=== PATIENT | female | born 1965 | race African-American/Black ===

== ENCOUNTER 2018-09-02 22:41 | Inpatient (IN) | payer MEDICAID, OTHER ==
[~2018-09-02] VITALS: Ht 180.3 cm; Wt 94.9 kg
[2018-09-03] MEDS ORDERED: FUROSEMIDE 40MG/4ML VIAL IV ONE
[2018-09-03] MEDS ORDERED: NITROGLYCERIN OINT 1GM/INCH UDPKT TD ONE
[2018-09-03] MEDS ORDERED: ASPIRIN 81MG TABLET PO ONE
[2018-09-03 00:10] LABS: BASOPHILS % 0.5 % (0.0-2.0); EOSINOPHILS % 1.8 % (0.0-5.0); HEMATOCRIT. 32.9 % (36.0-48.0); HEMOGLOBIN. 10.6 g/dL (12.0-16.0); LYMPHOCYTES % 21.8 % (20.0-50.0); MEAN CORPUSCULAR HEMOGLOBIN 25.7 pg (28.0-32.0); MEAN CORPUSCULAR VOLUME 79.9 fL (81.0-99.0); MEAN PLATELET VOLUME 7.2 fl (7.4-10.4); MONOCYTES % 6.4 % (2.0-8.0); NEUTROPHILS % 69.5 % (40.0-76.0); PLATELET 353 x1000/uL (130-400); RED BLOOD CELL COUNT 4.11 mill/uL (4.2-5.4); RED CELL DISTRIBUTION WIDTH 16.8 % (11.6-14.6)
[2018-09-03 00:18] LABS: CHLORIDE 106 mEq/L (98-107)
[2018-09-03 00:20] LABS: HCG SCREEN NEGATIVE
[2018-09-03 00:37] LABS: INR 1.2; PARTIAL THROMBOPLASTIN TIME 26.6 sec (23.4-31.0); PROTHROMBIN TIME 12.2 sec (9.6-11.0)
[2018-09-03] MEDS ORDERED: ACETAMINOPHEN 325MG TABLET PO PRN (02:45)
[2018-09-03] MEDS ORDERED: ONDANSETRON HCL 4MG/2ML INJ IV PRN (02:45)
[2018-09-03] MEDS ORDERED: DEXTROSE 50% WATER 50ML SYRINGE IV PRN (02:45)
[2018-09-03] MEDS ORDERED: CLONIDINE 0.1MG TABLET PO PRN (02:45)
[2018-09-03] MEDS ORDERED: DIPHENHYDRAMINE 50MG/ML VIAL IV PRN (02:45)
[2018-09-03] MEDS ORDERED: MAGNESIUM/ALUMINUM HYDROXIDE/SIMETHICONE 30ML UDC PO PRN (02:45)
[2018-09-03] MEDS ORDERED: FURO-152 PO (05:12)
[2018-09-03 05:22] VITALS: BP 144/95
[2018-09-03] MEDS: SODIUM CHLORIDE 0.9% INJ 3ML FLUSH IVF SCH ×3 (06:06→21:17)
[2018-09-03] MEDS: NITROGLYCERIN OINT 1GM/INCH UDPKT TD SCH ×2 (06:06→15:59)
[2018-09-03] MEDS: BLOOD SUGAR DIAGNOSTIC STRIP TEST SCH ×4 (06:56→22:00)
[2018-09-03 08:00] VITALS: BP 136/87
[2018-09-03] MEDS: POTASSIUM CHLORIDE 20MEQ TABLET SR PO SCH (08:29)
[2018-09-03] MEDS: METOLAZONE 10MG TABLET PO SCH (08:30)
[2018-09-03] MEDS: INSULIN LISPRO 100 UNITS/ML SUBCUT SCH ×4 (08:31→22:17)
[2018-09-03] MEDS: FUROSEMIDE 40MG/4ML VIAL IVP SCH ×2 (08:31→21:16)
[2018-09-03] MEDS ORDERED: LISINOPRIL 10MG TABLET PO SCH (09:00)
[2018-09-03 10:02] LABS: *AMPHETAMINES SCREEN URINE NEGATIVE (NEGATIVE); *BARBITURATES SCREEN URINE NEGATIVE (NEGATIVE); *COCAINE SCREEN URINE NEGATIVE (NEGATIVE); METHADONE URINE SCREEN NEGATIVE (NEGATIVE); OPIATES URINE SCREEN NEGATIVE (NEGATIVE)
[2018-09-03 10:03] LABS: *BENZODIAZEPINES SCREEN URINE NEGATIVE (NEGATIVE); CANNABINOID URINE SCREEN NEGATIVE (NEGATIVE); PHENCYCLIDINE URINE SCREEN NEGATIVE (NEGATIVE)
[2018-09-03 12:00] VITALS: BP 137/80
[2018-09-03 12:25] LABS: LDL CHOLESTEROL 66 mg/dL (5-100)
[2018-09-03 12:26] LABS: HDL CHOLESTEROL 35 mg/dL (40-59)
[2018-09-03 12:28] LABS: T4 FREE 1.35 ng/dL (0.76-1.46)
[2018-09-03 16:09] VITALS: BP 136/86
[2018-09-03 16:30] LABS: CREATINE KINASE 336 IU/L (26-192)
[2018-09-03 16:31] LABS: CREATINE KINASE MB FRACTION 4.8 ng/mL (0.5-3.6)
[2018-09-03] MEDS ORDERED: SPIRONOLACTONE 25MG TABLET PO SCH (17:30)
[2018-09-03] MEDS ORDERED: METFORMIN HCL 500MG TABLET PO SCH (18:10)
[2018-09-03 20:00] VITALS: BP 130/79
[2018-09-03] MEDS ORDERED: CARVEDILOL 25MG TABLET PO SCH (21:00)
[2018-09-03] MEDS ORDERED: CARVEDILOL 12.5MG TABLET PO SCH (21:02)
[2018-09-03] MEDS ORDERED: ISOSORBIDE DINITRATE 30MG TABLET PO SCH (22:00)
[2018-09-03] MEDS ORDERED: HYDRALAZINE HCL 50MG TABLET PO SCH (22:00)
[2018-09-04 00:25] VITALS: BP 78/36
[2018-09-04 01:00] VITALS: BP 89/45
[2018-09-04] MEDS ORDERED: GUAIFENESIN 200MG/10ML SUGAR FREE UDC PO PRN (01:00)
[2018-09-04 01:14] LABS: CREATINE KINASE MB FRACTION 3.3 ng/mL (0.5-3.6)
[2018-09-04 02:30] VITALS: BP 93/60
[2018-09-04 04:00] VITALS: BP 98/60
[2018-09-04 05:19] LABS: BASOPHILS % 0.6 % (0.0-2.0); EOSINOPHILS % 2.1 % (0.0-5.0); HEMATOCRIT. 30.9 % (36.0-48.0); HEMOGLOBIN. 10.1 g/dL (12.0-16.0); LYMPHOCYTES % 18.5 % (20.0-50.0); MEAN CORPUSCULAR HEMOGLOBIN 25.8 pg (28.0-32.0); MEAN CORPUSCULAR VOLUME 78.6 fL (81.0-99.0); MEAN PLATELET VOLUME 7.1 fl (7.4-10.4); MONOCYTES % 6.7 % (2.0-8.0); NEUTROPHILS % 72.1 % (40.0-76.0); PLATELET 381 x1000/uL (130-400); RED BLOOD CELL COUNT 3.93 mill/uL (4.2-5.4); RED CELL DISTRIBUTION WIDTH 17.2 % (11.6-14.6)
[2018-09-04 05:46] LABS: CHLORIDE 99 mEq/L (98-107)
[2018-09-04 05:51] LABS: PHOSPHORUS 4.4 mg/dL (2.5-4.9)
[2018-09-04 05:54] LABS: CREATINE KINASE 264 IU/L (26-192)
[2018-09-04 05:56] LABS: CREATINE KINASE MB FRACTION 2.6 ng/mL (0.5-3.6)
[2018-09-04] MEDS: SODIUM CHLORIDE 0.9% INJ 3ML FLUSH IVF SCH (06:02)
[2018-09-04] MEDS: BLOOD SUGAR DIAGNOSTIC STRIP TEST SCH (06:03)
[2018-09-04 08:00] VITALS: BP 116/91
[2018-09-04] MEDS: INSULIN LISPRO 100 UNITS/ML SUBCUT SCH (08:10)
[2018-09-04] MEDS ORDERED: CARVEDILOL 6.25 MG TABLET PO SCH (09:00)
[2018-09-04] MEDS ORDERED: ISOSORBIDE DINITRATE 20MG TABLET PO SCH (09:00)
[2018-09-04] MEDS ORDERED: HYDRALAZINE HCL 25MG TABLET PO SCH (09:00)
[2018-09-04] MEDS ORDERED: MAGNESIUM 1 G PREMIX 100 ML IV NR (09:00)
[2018-09-04] MEDS: FUROSEMIDE 40MG/4ML VIAL IVP SCH (09:00)
[2018-09-04] MEDS ORDERED: CARVEDILOL 12.5MG TABLET PO SCH (09:00)
[2018-09-04] MEDS: METOLAZONE 10MG TABLET PO SCH (10:32)
[2018-09-04] MEDS: POTASSIUM CHLORIDE 20MEQ TABLET SR PO SCH (10:32)
[2018-09-04 12:26] VITALS: BP 116/91
== END 2018-09-04 10:30 | disposition home or self-care (01) | DRG 194 ==
LOC: ER 22:41 → 7WST 09-03 01:10 → EDBEDREQ 09-03 01:15 → EDBEDREQDT 09-03 01:15 → EDBEDREQTM 09-03 01:15 → ENRESERV 09-03 03:52
PROVIDERS: ADMIT Internal Medicine; ATTEND Internal Medicine
DX: I11.0 Hypertensive heart disease with heart failure (principal); E11.9 Type 2 diabetes mellitus without complications; I25.10 Atherosclerotic heart disease of native coronary artery without angina pectoris; I50.43 Acute on chronic combined systolic (congestive) and diastolic (congestive) heart failure; E66.9 Obesity, unspecified; Z79.82 Long term (current) use of aspirin; Z79.84 Long term (current) use of oral hypoglycemic drugs; Z68.29 Body mass index [BMI] 29.0-29.9, adult
CPT/HCPCS: 36415; 71045; 80048; 80061; 80305; 82550; 82553; 82962; 83036; 83735; 83880; 84100; 84439; 84443; 84484; 84703; 85379; 93005; 93306; 93970; 99285; J1200; J1815; J1940; J3475

== ENCOUNTER 2019-03-22 23:28 | Emergency (ER) | payer MEDICAID, OTHER ==
[~2019-03-22] VITALS: Ht 180.3 cm; Wt 108.3 kg
[~2019-03-22 23:28] MED LIST: FURO-152 PO
[2019-03-23 00:54] LABS: CLARITY URINE CLOUDY (CLEAR); COLOR URINE DARK YELLOW (YELLOW); KETONES URINE NEGATIVE (NEGATIVE); LEUKOCYTE ESTERASE URINE NEGATIVE (NEGATIVE); NITRITE URINE POSITIVE (NEGATIVE); OCCULT BLOOD URINE 1+ (NEGATIVE); PH URINE 5.5 (4.5-8.0); PROTEIN URINE 3+ (NEGATIVE); SPECIFIC GRAVITY URINE 1.036 (1.005-1.030)
[2019-03-23] MEDS ORDERED: ACETAMINOPHEN 325MG TABLET PO NR (02:53)
[2019-03-23] MEDS ORDERED: ONDANSETRON HCL 4MG/2ML INJ IV NR (02:53)
[2019-03-23] MEDS ORDERED: CEFTRIAXONE 1 G PREMIX 50 ML IV NR (03:00)
[2019-03-23 03:32] LABS: CHLORIDE 103 mEq/L (98-107)
[2019-03-23 03:34] LABS: EOSINOPHILS % 1.1 % (0.0-5.0); HEMATOCRIT. 27.1 % (36.0-48.0); HEMOGLOBIN. 8.9 g/dL (12.0-16.0); LYMPHOCYTES % 28.8 % (20.0-50.0); MEAN CORPUSCULAR HEMOGLOBIN 26.9 pg (28.0-32.0); MEAN PLATELET VOLUME 7.5 fl (7.4-10.4); MONOCYTES % 9.8 % (2.0-8.0); NEUTROPHILS % 59.3 % (40.0-76.0); PLATELET 281 x1000/uL (130-400); RED CELL DISTRIBUTION WIDTH 15.6 % (11.6-14.6)
[2019-03-23 05:00] VITALS: BP 132/85
== END 2019-03-23 05:03 | disposition home or self-care (01) ==
LOC: ER 23:28
DX: N39.0 Urinary tract infection, site not specified (principal); R11.2 Nausea with vomiting, unspecified; I10 Essential (primary) hypertension; Z98.890 Other specified postprocedural states
CPT/HCPCS: 36415; 80053; 81003; 83690; 85025; 96365; 96366; 96375; 99283; J0696; J2405; Z7610

== ENCOUNTER 2019-04-27 13:09 | Emergency (ER) | payer MEDICAID ==
[~2019-04-27] VITALS: Ht 167.6 cm; Wt 75.0 kg
[2019-04-27 15:20] VITALS: BP 138/99
[2019-04-27 17:00] LABS: BASOPHILS % 0.7 % (0.0-2.0); EOSINOPHILS % 2.7 % (0.0-5.0); HEMATOCRIT. 28.3 % (36.0-48.0); LYMPHOCYTES % 24.1 % (20.0-50.0); MEAN CORPUSCULAR HEMOGLOBIN 24.3 pg (28.0-32.0); MEAN CORPUSCULAR VOLUME 76.4 fL (81.0-99.0); MEAN PLATELET VOLUME 7.5 fl (7.4-10.4); NEUTROPHILS % 64.5 % (40.0-76.0); PLATELET 384 x1000/uL (130-400); RED CELL DISTRIBUTION WIDTH 18.9 % (11.6-14.6)
[2019-04-27 17:08] LABS: CHLORIDE 102 mEq/L (98-107)
== END 2019-04-27 20:54 | disposition left against medical advice (07) ==
LOC: ER 13:09
DX: I50.9 Heart failure, unspecified (principal); R60.9 Edema, unspecified; E11.9 Type 2 diabetes mellitus without complications; I10 Essential (primary) hypertension; Z98.890 Other specified postprocedural states; Z88.0 Allergy status to penicillin
CPT/HCPCS: 36415; 74022; 80053; 81025; 83880; 84484; 85025; 93005; 99284

== ENCOUNTER 2019-10-29 21:43 | Emergency (ER) | payer MEDICAID ==
[~2019-10-29] VITALS: Ht 180.3 cm; Wt 106.0 kg
[2019-10-30 00:23] LABS: BASOPHILS % 0.8 % (0.0-2.0); EOSINOPHILS % 1.8 % (0.0-5.0); HEMATOCRIT. 30.7 % (36.0-48.0); HEMOGLOBIN. 9.6 g/dL (12.0-16.0); LYMPHOCYTES % 25.2 % (20.0-50.0); MEAN CORPUSCULAR HEMOGLOBIN 23.2 pg (28.0-32.0); MEAN CORPUSCULAR VOLUME 73.9 fL (81.0-99.0); MEAN PLATELET VOLUME 7.9 fl (7.4-10.4); MONOCYTES % 8.7 % (2.0-8.0); NEUTROPHILS % 63.5 % (40.0-76.0); PLATELET 295 x1000/uL (130-400); RED BLOOD CELL COUNT 4.16 mill/uL (4.2-5.4); RED CELL DISTRIBUTION WIDTH 21.2 % (11.6-14.6)
[2019-10-30 00:34] LABS: CHLORIDE 106 mEq/L (98-107)
[2019-10-30 00:41] LABS: CLARITY URINE CLEAR (CLEAR); COLOR URINE DARK YELLOW (YELLOW); KETONES URINE TRACE (NEGATIVE); LEUKOCYTE ESTERASE URINE TRACE (NEGATIVE); NITRITE URINE NEGATIVE (NEGATIVE); OCCULT BLOOD URINE 1+ (NEGATIVE); PROTEIN URINE 4+ (NEGATIVE); SPECIFIC GRAVITY URINE 1.024 (1.005-1.030)
[2019-10-30] MEDS ORDERED: FUROSEMIDE 20MG/2ML VIAL IVP ONE (02:45)
[2019-10-30] MEDS ORDERED: KETOROLAC 15MG/ML VIAL IV NR (02:45)
[2019-10-30] MEDS ORDERED: POTASSIUM CHLORIDE 20MEQ TABLET SR PO ONE (03:00)
[2019-10-30 07:41] VITALS: BP 144/85
== END 2019-10-30 07:56 | disposition short-term general hospital (02) ==
LOC: ER 21:43
DX: R16.0 Hepatomegaly, not elsewhere classified (principal); I50.9 Heart failure, unspecified; E11.9 Type 2 diabetes mellitus without complications; I10 Essential (primary) hypertension; Z98.890 Other specified postprocedural states; Z88.0 Allergy status to penicillin
CPT/HCPCS: 36415; 71045; 74176; 80053; 81003; 81025; 83690; 83880; 84484; 85025; 93971; 96374; 96375; 99285; J1885; J1940

== ENCOUNTER 2020-05-21 08:12 | Emergency (ER) | payer MEDICAID, OTHER ==
[~2020-05-21] VITALS: Ht 180.3 cm; Wt 91.0 kg
[2020-05-21 08:52] LABS: CHLORIDE 106 mEq/L (98-107)
[2020-05-21 08:56] LABS: HEMOGLOBIN. 9.7 g/dL (12.0-16.0); MEAN CORPUSCULAR VOLUME 75.9 fL (81.0-99.0); MEAN PLATELET VOLUME 7.2 fl (7.4-10.4); PLATELET 270 x1000/uL (130-400); RED BLOOD CELL COUNT 4.21 mill/uL (4.2-5.4); RED CELL DISTRIBUTION WIDTH 21.3 % (11.6-14.6)
[2020-05-21] MEDS ORDERED: FUROSEMIDE 40MG/4ML VIAL IV ONE (09:30)
[2020-05-21] MEDS ORDERED: AZITHROMYCIN 500 MG in DEXT 5% WATER 250 ML IV ONE (09:30)
[2020-05-21] MEDS ORDERED: ASPIRIN 81MG TABLET PO ONE (09:30)
[2020-05-21] MEDS ORDERED: LEVOFLOXACIN 750MG PREMIX 150 ML IV ONE (09:30)
[2020-05-21 10:14] LABS: PLATELET ESTIMATE NORMAL
[2020-05-21 14:45] VITALS: BP 108/79
== END 2020-05-21 15:28 | disposition short-term general hospital (02) ==
LOC: ER 08:12
DX: I11.0 Hypertensive heart disease with heart failure (principal); I50.9 Heart failure, unspecified; J18.9 Pneumonia, unspecified organism; Z88.0 Allergy status to penicillin
CPT/HCPCS: 36415; 71045; 80053; 83880; 84484; 85025; 87040; 87077; 87186; 93005; 93970; 96365; 96367; 96375; 99285; J0456; J1940; J1956; J7060; Z7610

== ENCOUNTER 2021-03-30 10:04 | Emergency (ER) | payer MEDICAID, OTHER ==
[~2021-03-30] VITALS: Ht 172.7 cm; Wt 115.0 kg
[2021-03-30 10:19] VITALS: BP 159/93
[2021-03-30] MEDS ORDERED: HYDR-4134 MT (10:55)
[2021-03-30] MEDS ORDERED: CARV6.2548 MT (10:55)
[2021-03-30] MEDS ORDERED: SACU1TAB MT (10:55)
[2021-03-30] MEDS ORDERED: ISOS5TAB4 MT (10:55)
[2021-03-30] MEDS ORDERED: ASPI-1497 MT (10:55)
[2021-03-30] MEDS ORDERED: SPIR100T5 MT (10:55)
[2021-03-30] MEDS ORDERED: ATOR40TA70 MT (10:55)
[2021-03-30] MEDS ORDERED: APIX5TAB MT (10:55)
[2021-03-30] MEDS ORDERED: FLUT1DIS3 INH (10:55)
[2021-03-30] MEDS ORDERED: BUME0.5T5 MT (10:55)
== END 2021-03-30 11:43 | disposition home or self-care (01) ==
LOC: ER 11:28
DX: Z76.0 Encounter for issue of repeat prescription (principal); I11.0 Hypertensive heart disease with heart failure; I50.9 Heart failure, unspecified; Z98.1 Arthrodesis status; Z79.82 Long term (current) use of aspirin; Z88.0 Allergy status to penicillin
CPT/HCPCS: 99283

== ENCOUNTER 2022-04-20 08:16 | Inpatient (IN) | payer MEDICAID ==
[~2022-04-20] VITALS: Ht 160 cm; Wt 119.3 kg
[~2022-04-20 08:16] MED LIST changes: +APIX5TAB MT; +ASPI-1497 MT; +ATOR40TA70 MT; +BUME0.5T5 MT; +CARV6.2548 MT; +FLUT1DIS3 INH; +HYDR-4134 MT; +ISOS5TAB4 MT; +SACU1TAB MT; +SPIR100T5 MT
[2022-04-20] MEDS ORDERED: BUMETANIDE 1MG/4ML VIAL IV NR (10:45)
[2022-04-20 11:01] LABS: BASOPHILS % 0.6 % (0.0-2.0); HEMATOCRIT. 30.4 % (36.0-48.0); HEMOGLOBIN. 9.5 g/dL (12.0-16.0); LYMPHOCYTES % 9.4 % (20.0-50.0); MEAN CORPUSCULAR HEMOGLOBIN 26.5 pg (28.0-32.0); MEAN PLATELET VOLUME 6.7 fl (7.4-10.4); MONOCYTES % 6.7 % (2.0-8.0); NEUTROPHILS % 81.3 % (40.0-76.0); PLATELET 325 x1000/uL (130-400); RED BLOOD CELL COUNT 3.57 mill/uL (4.2-5.4); RED CELL DISTRIBUTION WIDTH 18.1 % (11.6-14.6)
[2022-04-20 11:09] LABS: CHLORIDE 107 mEq/L (98-107)
[2022-04-20 11:10] LABS: INR 1.2; PARTIAL THROMBOPLASTIN TIME 27.3 sec (23.4-31.0); PROTHROMBIN TIME 13.1 sec (9.6-11.0)
[2022-04-20 17:55] VITALS: BP 152/55
[2022-04-20 18:04] VITALS: BP 152/55
[2022-04-20 19:31] VITALS: BP 114/63
[2022-04-20] MEDS: AMLODIPINE 10MG TABLET PO SCH (20:20)
[2022-04-20] MEDS: TRAMADOL 50MG TABLET PO PRN (20:21)
[2022-04-20] MEDS: FUROSEMIDE 40MG/4ML VIAL IVP SCH (20:22)
[2022-04-21 00:10] VITALS: BP 124/65
[2022-04-21 04:11] VITALS: BP 110/59
[2022-04-21 06:28] LABS: BASOPHILS % 0.7 % (0.0-2.0); EOSINOPHILS % 3.2 % (0.0-5.0); HEMATOCRIT. 27.7 % (36.0-48.0); HEMOGLOBIN. 8.9 g/dL (12.0-16.0); LYMPHOCYTES % 10.6 % (20.0-50.0); MEAN CORPUSCULAR HEMOGLOBIN 26.8 pg (28.0-32.0); MEAN CORPUSCULAR VOLUME 83.4 fL (81.0-99.0); MEAN PLATELET VOLUME 6.8 fl (7.4-10.4); MONOCYTES % 8.1 % (2.0-8.0); NEUTROPHILS % 77.4 % (40.0-76.0); PLATELET 326 x1000/uL (130-400); RED BLOOD CELL COUNT 3.32 mill/uL (4.2-5.4); RED CELL DISTRIBUTION WIDTH 17.8 % (11.6-14.6)
[2022-04-21 08:01] VITALS: BP 104/65
[2022-04-21] MEDS: AMLODIPINE 10MG TABLET PO SCH ×2 (08:51→08:52)
[2022-04-21] MEDS: FUROSEMIDE 40MG/4ML VIAL IVP SCH (08:51)
[2022-04-21] MEDS: CARVEDILOL 6.25 MG TABLET PO SCH ×2 (09:15→20:59)
[2022-04-21] MEDS: HYDRALAZINE HCL 25MG TABLET PO SCH ×2 (09:15→20:59)
[2022-04-21] MEDS: APIXABAN 5 MG TABLET PO SCH ×2 (09:42→14:16)
[2022-04-21] MEDS: ATORVASTATIN CALCIUM 40MG TABLET PO SCH (09:43)
[2022-04-21] MEDS: SPIRONOLACTONE 50MG TABLET PO SCH (09:43)
[2022-04-21] MEDS ORDERED: NALOXONE HCL 0.4MG/ML VIAL IV PRN (09:45)
[2022-04-21] MEDS ORDERED: LIDOCAINE HCL 1% 30ML VIAL (10MG/ML) ONE (11:54)
[2022-04-21 13:12] VITALS: BP 94/46
[2022-04-21] MEDS: TRAMADOL 50MG TABLET PO PRN (13:18)
[2022-04-21 14:51] LABS: CLARITY URINE CLEAR (CLEAR); COLOR URINE YELLOW (YELLOW); KETONES URINE NEGATIVE (NEGATIVE); LEUKOCYTE ESTERASE URINE NEGATIVE (NEGATIVE); NITRITE URINE POSITIVE (NEGATIVE); OCCULT BLOOD URINE NEGATIVE (NEGATIVE); PROTEIN URINE 1+ (NEGATIVE); SPECIFIC GRAVITY URINE 1.015 (1.005-1.030); UROBILINOGEN URINE 0.2 E.U./dL (0.2-1.0)
[2022-04-21 15:23] VITALS: BP 95/50
[2022-04-21 16:01] LABS: *AMPHETAMINES SCREEN URINE NEGATIVE (NEGATIVE); *BARBITURATES SCREEN URINE NEGATIVE (NEGATIVE); *BENZODIAZEPINES SCREEN URINE NEGATIVE (NEGATIVE); *COCAINE SCREEN URINE NEGATIVE (NEGATIVE); CANNABINOID URINE SCREEN NEGATIVE (NEGATIVE); METHADONE URINE SCREEN NEGATIVE (NEGATIVE); OPIATES URINE SCREEN NEGATIVE (NEGATIVE); PHENCYCLIDINE URINE SCREEN NEGATIVE (NEGATIVE)
[2022-04-21 20:09] VITALS: BP 96/56
[2022-04-21] MEDS ORDERED: ENOXAPARIN 40MG/0.4ML SYR SUBCUT SCH (21:00)
[2022-04-22 00:04] VITALS: BP 108/61
[2022-04-22 04:05] VITALS: BP 98/55
[2022-04-22 08:09] VITALS: BP 96/57
[2022-04-22] MEDS: CARVEDILOL 6.25 MG TABLET PO SCH (08:34)
[2022-04-22] MEDS: AMLODIPINE 10MG TABLET PO SCH (08:34)
[2022-04-22] MEDS: HYDRALAZINE HCL 25MG TABLET PO SCH ×2 (08:34→21:00)
[2022-04-22] MEDS: FUROSEMIDE 40MG/4ML VIAL IVP SCH ×2 (08:47→17:02)
[2022-04-22] MEDS: ASPIRIN 81MG EC TABLET PO SCH (08:47)
[2022-04-22] MEDS: SPIRONOLACTONE 50MG TABLET PO SCH (08:47)
[2022-04-22] MEDS: APIXABAN 5 MG TABLET PO SCH (08:47)
[2022-04-22] MEDS: ATORVASTATIN CALCIUM 40MG TABLET PO SCH (08:47)
[2022-04-22 11:18] VITALS: BP 98/56
[2022-04-22 15:31] VITALS: BP 91/45
[2022-04-22 20:00] VITALS: BP 123/70
[2022-04-22] MEDS: CARVEDILOL 3.125 MG TABLET PO SCH (21:00)
[2022-04-23] VITALS: BP 90/54
[2022-04-23 04:00] VITALS: BP 98/57
[2022-04-23 08:00] VITALS: BP 123/65
[2022-04-23] MEDS ORDERED: SPIR25TA PO (08:18)
[2022-04-23] MEDS ORDERED: FURO-151 MT (08:18)
[2022-04-23 08:56] LABS: TOTAL IRON BINDING CAPACITY 299 ug/dL (250-450)
[2022-04-23] MEDS ORDERED: AMLODIPINE 2.5MG TABLET PO SCH (09:00)
[2022-04-23] MEDS ORDERED: SPIRONOLACTONE 25MG TABLET PO SCH (09:00)
[2022-04-23] MEDS: FUROSEMIDE 40MG/4ML VIAL IVP SCH (09:03)
[2022-04-23] MEDS: ASPIRIN 81MG EC TABLET PO SCH (09:05)
[2022-04-23] MEDS: CARVEDILOL 3.125 MG TABLET PO SCH (09:05)
[2022-04-23] MEDS: ATORVASTATIN CALCIUM 40MG TABLET PO SCH (09:05)
[2022-04-23] MEDS: HYDRALAZINE HCL 25MG TABLET PO SCH (09:06)
[2022-04-23 09:56] VITALS: BP 123/65
[2022-04-23 10:49] LABS: BASOPHILS % 0.6 % (0.0-2.0); EOSINOPHILS % 3.2 % (0.0-5.0); HEMATOCRIT. 31.6 % (36.0-48.0); HEMOGLOBIN. 10.2 g/dL (12.0-16.0); LYMPHOCYTES % 9.2 % (20.0-50.0); MEAN CORPUSCULAR HEMOGLOBIN 26.8 pg (28.0-32.0); MEAN CORPUSCULAR VOLUME 83.3 fL (81.0-99.0); MEAN PLATELET VOLUME 6.9 fl (7.4-10.4); MONOCYTES % 4.7 % (2.0-8.0); NEUTROPHILS % 82.3 % (40.0-76.0); PLATELET 406 x1000/uL (130-400); RED CELL DISTRIBUTION WIDTH 17.7 % (11.6-14.6)
[2022-04-23 12:00] VITALS: BP 119/63
== END 2022-04-23 13:23 | disposition home or self-care (01) | DRG 194 ==
LOC: ER 08:16 → EDBEDREQ 14:06 → EDBEDREQTM 14:06 → ENRESERV 15:03 → 3WST 17:04
PROVIDERS: ADMIT Hospitalist; ATTEND Hospitalist
PROC: 0W9G3ZZ Drainage of Peritoneal Cavity, Percutaneous Approach (ICD-10-PCS; principal; 2022-04-21)
DX: I11.0 Hypertensive heart disease with heart failure (principal); E43 Unspecified severe protein-calorie malnutrition; R18.8 Other ascites; D68.59 Other primary thrombophilia; I95.9 Hypotension, unspecified; I42.9 Cardiomyopathy, unspecified; D63.8 Anemia in other chronic diseases classified elsewhere; Z20.822 Contact with and (suspected) exposure to COVID-19; I50.43 Acute on chronic combined systolic (congestive) and diastolic (congestive) heart failure; E11.9 Type 2 diabetes mellitus without complications; I07.1 Rheumatic tricuspid insufficiency; E66.9 Obesity, unspecified; Z88.0 Allergy status to penicillin; Z68.42 Body mass index [BMI] 45.0-49.9, adult; Z79.899 Other long term (current) drug therapy
CPT/HCPCS: 36415; 49083; 71045; 76705; 80048; 80053; 80305; 81003; 83540; 83550; 83880; 84484; 85025; 87426; 93005; 93306; 93970; 99285; C9803; J1940; J3490

== ENCOUNTER 2022-10-23 20:11 | Inpatient (IN) | payer MEDICAID ==
[~2022-10-23] VITALS: Ht 170.2 cm; Wt 127.0 kg
[~2022-10-23 20:11] MED LIST changes: +FURO-151 MT; -FURO-152 PO; -SPIR100T5 MT; +SPIR25TA PO
[2022-10-23] MEDS ORDERED: MORPHINE SULFATE 4 MG/ML CPJ (NOT FOR IM USE) IV STA (20:37)
[2022-10-23] MEDS ORDERED: ONDANSETRON HCL 4MG/2ML INJ IV STA (20:37)
[2022-10-23 21:42] LABS: BASOPHILS % 0.6 % (0.0-2.0); EOSINOPHILS % 2.1 % (0.0-5.0); HEMATOCRIT. 29.5 % (36.0-48.0); HEMOGLOBIN. 9.2 g/dL (12.0-16.0); LYMPHOCYTES % 8.9 % (20.0-50.0); MEAN CORPUSCULAR HEMOGLOBIN 26.9 pg (28.0-32.0); MEAN CORPUSCULAR HGB CONC 31.2 g/dL (31.0-37.0); MEAN CORPUSCULAR VOLUME 86.3 fL (81.0-99.0); MEAN PLATELET VOLUME 6.5 fl (7.4-10.4); MONOCYTES % 9.5 % (2.0-8.0); NEUTROPHILS % 78.9 % (40.0-76.0); PLATELET 311 x1000/uL (130-400); RED BLOOD CELL COUNT 3.41 mill/uL (4.2-5.4); RED CELL DISTRIBUTION WIDTH 17.2 % (11.6-14.6); WHITE BLOOD COUNT 5.5 x1000/uL (4.5-11.0)
[2022-10-23 21:53] LABS: CHLORIDE 108 mEq/L (98-107); INDEX HEMOLYSI 1 (1-3); INDEX ICTERIC 1 (1-4); INDEX LIPEMIC 1 (1-3); INR 1.2; POTASSIUM 4.8 mEq/L (3.5-5.1); PROTHROMBIN TIME 13.2 sec (9.6-11.0); SODIUM 134 mEq/L (136-145)
[2022-10-23 21:57] LABS: AMMONIA 27 uMol/L (<32)
[2022-10-23 22:02] LABS: ALANINE AMINOTRANSFERASE 11 IU/L (13-61); ALBUMIN 2.6 g/dL (3.4-5.0); ASPARTATE AMINOTRANSFERASE 18 IU/L (15-37); BILIRUBIN TOTAL 0.7 mg/dL (0.1-1.0); CALCIUM 8.7 mg/dL (8.5-10.1); CARBON DIOXIDE 21 mEq/L (21-32); CREATININE 1.8 mg/dL (0.6-1.3); GLUCOSE 150 mg/dL (70-105); NT PRO B-TYPE NATRIURETIC PEP 11184 pg/mL (5-125); PROTEIN TOTAL 7.1 g/dL (6.0-8.3); UREA NITROGEN BLOOD 39 mg/dL (7-21)
[2022-10-23] MEDS ORDERED: MORPHINE SULFATE 4 MG/ML CPJ (NOT FOR IM USE) IV NR (22:09)
[2022-10-23] MEDS ORDERED: ONDANSETRON HCL 4MG/2ML INJ IV NR (22:09)
[2022-10-23] MEDS ORDERED: ACETAMINOPHEN 325MG TABLET PO PRN (23:30)
[2022-10-23] MEDS ORDERED: DEXTROSE 50% WATER 50ML SYRINGE IV PRN (23:30)
[2022-10-23] MEDS ORDERED: IPRATROPIUM/ALBUTEROL 0.5-3(2.5)MG/3ML NEB HHN PRN (23:30)
[2022-10-24 00:55] LABS: INDEX HEMOLYSI 1 (1-3); INDEX ICTERIC 1 (1-4); INDEX LIPEMIC 1 (1-3)
[2022-10-24 00:56] LABS: INDEX HEMOLYSI 1 (1-3)
[2022-10-24 01:00] LABS: IRON 22 ug/dL (50-175); TOTAL IRON BINDING CAPACITY 316 ug/dL (250-450)
[2022-10-24 01:23] LABS: FERRITIN 108 ng/mL (10-291)
[2022-10-24 01:42] LABS: FOLIC ACID (FOLATE) SERUM >20 ng/mL ng/mL (>5.38); VITAMIN B12 SERUM 1469 pg/mL (211-911)
[2022-10-24 06:00] VITALS: BP 113/57; PULSE 116; RESP 16; TEMP 98.2
[2022-10-24] MEDS: INSULIN LISPRO 100 UNITS/ML SUBCUT SCH ×4 (07:50→21:00)
[2022-10-24 08:04] LABS: EOSINOPHILS % 3.4 % (0.0-5.0); HEMATOCRIT. 28.8 % (36.0-48.0); HEMOGLOBIN. 8.9 g/dL (12.0-16.0); LYMPHOCYTES % 12.1 % (20.0-50.0); MEAN CORPUSCULAR HEMOGLOBIN 26.8 pg (28.0-32.0); MEAN CORPUSCULAR VOLUME 86.5 fL (81.0-99.0); MEAN PLATELET VOLUME 6.6 fl (7.4-10.4); MONOCYTES % 9.4 % (2.0-8.0); NEUTROPHILS % 74.1 % (40.0-76.0); PLATELET 297 x1000/uL (130-400); RED BLOOD CELL COUNT 3.33 mill/uL (4.2-5.4); RED CELL DISTRIBUTION WIDTH 17.8 % (11.6-14.6); WHITE BLOOD COUNT 4.9 x1000/uL (4.5-11.0)
[2022-10-24] MEDS: BLOOD SUGAR DIAGNOSTIC STRIP TEST SCH ×4 (08:18→21:00)
[2022-10-24] MEDS: PANTOPRAZOLE SODIUM 40 MG/VIAL IV SCH (08:44)
[2022-10-24] MEDS ORDERED: SPIRONOLACTONE 25MG TABLET PO SCH (09:00)
[2022-10-24] MEDS ORDERED: FUROSEMIDE 40MG/4ML VIAL IV SCH (09:00)
[2022-10-24] MEDS ORDERED: CARVEDILOL 3.125 MG TABLET PO SCH (09:00)
[2022-10-24] MEDS ORDERED: LIDOCAINE HCL 1% 10 MG/ML 10ML VIAL ONE (09:18)
[2022-10-24] MEDS ORDERED: SODIUM BICARBONATE 4% (2.4MEQ) 5ML VIAL IV ONE (09:18)
[2022-10-24 09:26] LABS: TROPONIN I HIGH SENSITIVITY 23 ng/L (<54)
[2022-10-24 10:45] LABS: CHLORIDE 108 mEq/L (98-107); INDEX HEMOLYSI 1 (1-3); INDEX ICTERIC 1 (1-4); INDEX LIPEMIC 1 (1-3); SODIUM 134 mEq/L (136-145)
[2022-10-24 10:57] LABS: ALANINE AMINOTRANSFERASE 10 IU/L (13-61); ALBUMIN 2.6 g/dL (3.4-5.0); ASPARTATE AMINOTRANSFERASE 19 IU/L (15-37); BILIRUBIN TOTAL 0.7 mg/dL (0.1-1.0); CALCIUM 8.4 mg/dL (8.5-10.1); CARBON DIOXIDE 21 mEq/L (21-32); CHOLESTEROL 138 mg/dL (<200); GLUCOSE 126 mg/dL (70-105); HDL CHOLESTEROL 34 mg/dL (40-59); LDL CHOLESTEROL 89 mg/dL (5-100); PROTEIN TOTAL 6.7 g/dL (6.0-8.3); T4 FREE 1.26 ng/dL (0.76-1.46); TRIGLYCERIDE 136 mg/dL (0-150); UREA NITROGEN BLOOD 42 mg/dL (7-21)
[2022-10-24] MEDS ORDERED: ALBUMIN HUMAN 25GM/100ML (25%) IV NR (15:00)
[2022-10-24 16:18] LABS: TROPONIN I HIGH SENSITIVITY 20 ng/L (<54)
[2022-10-24 20:00] VITALS: PULSE 114; RESP 20; TEMP 98.7
[2022-10-24] MEDS ORDERED: ATORVASTATIN CALCIUM 40MG TABLET PO SCH (21:00)
[2022-10-25] VITALS: BP 88/49; PULSE 103; RESP 20; TEMP 95.6
[2022-10-25] MEDS: BLOOD SUGAR DIAGNOSTIC STRIP TEST SCH ×2 (06:36→13:18)
[2022-10-25 07:41] LABS: BASOPHILS % 0.8 % (0.0-2.0); EOSINOPHILS % 3.4 % (0.0-5.0); HEMATOCRIT. 28.2 % (36.0-48.0); LYMPHOCYTES % 10.1 % (20.0-50.0); MEAN CORPUSCULAR HEMOGLOBIN 27.4 pg (28.0-32.0); MEAN CORPUSCULAR HGB CONC 31.9 g/dL (31.0-37.0); MEAN CORPUSCULAR VOLUME 86.1 fL (81.0-99.0); MEAN PLATELET VOLUME 6.6 fl (7.4-10.4); NEUTROPHILS % 76.7 % (40.0-76.0); PLATELET 265 x1000/uL (130-400); RED BLOOD CELL COUNT 3.28 mill/uL (4.2-5.4); RED CELL DISTRIBUTION WIDTH 17.6 % (11.6-14.6)
[2022-10-25] MEDS: INSULIN LISPRO 100 UNITS/ML SUBCUT SCH ×2 (07:50→12:50)
[2022-10-25 08:00] VITALS: BP 94/47; PULSE 108; RESP 20; TEMP 97.9
[2022-10-25 09:09] LABS: CHLORIDE 109 mEq/L (98-107); INDEX HEMOLYSI 1 (1-3); INDEX ICTERIC 1 (1-4); INDEX LIPEMIC 1 (1-3); POTASSIUM 5.1 mEq/L (3.5-5.1); SODIUM 136 mEq/L (136-145)
[2022-10-25 09:21] LABS: ALANINE AMINOTRANSFERASE 9 IU/L (13-61); ALBUMIN 2.3 g/dL (3.4-5.0); ASPARTATE AMINOTRANSFERASE 18 IU/L (15-37); BILIRUBIN TOTAL 0.7 mg/dL (0.1-1.0); CARBON DIOXIDE 21 mEq/L (21-32); CREATININE 1.9 mg/dL (0.6-1.3); GLUCOSE 159 mg/dL (70-105); PHOSPHORUS 4.2 mg/dL (2.5-4.9); PROTEIN TOTAL 5.5 g/dL (6.0-8.3); UREA NITROGEN BLOOD 42 mg/dL (7-21)
[2022-10-25] MEDS: PANTOPRAZOLE SODIUM 40 MG/VIAL IV SCH (09:41)
[2022-10-25 12:00] VITALS: BP 98/50; PULSE 100; RESP 20; TEMP 98.1
[2022-10-25 16:00] VITALS: BP 96/60; PULSE 98; RESP 18; TEMP 98.3
[2022-10-25 18:29] VITALS: BP 96/60; PULSE 98; TEMP 98.3; O2SAT 98
== END 2022-10-25 18:50 | disposition home or self-care (01) | DRG 194 ==
LOC: ER 20:11 → MICUSO 21:48 → EDBEDREQ 22:00 → 6WST 10-24 05:47
PROVIDERS: ADMIT Internal Medicine; ATTEND Internal Medicine
PROC: 0W9G3ZZ Drainage of Peritoneal Cavity, Percutaneous Approach (ICD-10-PCS; principal; 2022-10-24)
DX: I13.0 Hypertensive heart and chronic kidney disease with heart failure and stage 1 through stage 4 chronic kidney disease, or unspecified chronic kidney disease (principal); I31.39 Other pericardial effusion (noninflammatory); N17.9 Acute kidney failure, unspecified; R18.8 Other ascites; I95.9 Hypotension, unspecified; I42.9 Cardiomyopathy, unspecified; I50.9 Heart failure, unspecified; N18.2 Chronic kidney disease, stage 2 (mild); E78.5 Hyperlipidemia, unspecified; G47.33 Obstructive sleep apnea (adult) (pediatric); R73.9 Hyperglycemia, unspecified; I08.1 Rheumatic disorders of both mitral and tricuspid valves; D64.9 Anemia, unspecified; E66.09 Other obesity due to excess calories; S90.822A Blister (nonthermal), left foot, initial encounter; X58.XXXA Exposure to other specified factors, initial encounter; Y93.89 Activity, other specified; Y92.89 Other specified places as the place of occurrence of the external cause; Y99.8 Other external cause status; Z68.41 Body mass index [BMI] 40.0-44.9, adult; Z79.899 Other long term (current) drug therapy; Z82.49 Family history of ischemic heart disease and other diseases of the circulatory system; Z88.0 Allergy status to penicillin; I25.2 Old myocardial infarction
CPT/HCPCS: 36415; 49083; 71045; 74018; 76705; 80053; 80061; 82140; 82607; 82728; 82746; 82962; 83036; 83540; 83550; 83605; 83735; 83880; 84100; 84439; 84443; 84484; 85025; 93306; 99285; C9113; J2270; J2405; J3490; P9047

== ENCOUNTER 2022-11-23 15:54 | Inpatient (IN) | payer MEDICAID ==
[~2022-11-23] VITALS: Ht 363.2 cm; Wt 117.9 kg
[2022-11-23] MEDS ORDERED: FUROSEMIDE 100MG/10ML VIAL IVP ONE (16:15)
[2022-11-23] MEDS ORDERED: FUROSEMIDE 40MG/4ML VIAL IVP NR (16:30)
[2022-11-23 18:06] LABS: BASOPHILS % 0.8 % (0.0-2.0); EOSINOPHILS % 1.4 % (0.0-5.0); HEMATOCRIT. 31.6 % (36.0-48.0); HEMOGLOBIN. 9.8 g/dL (12.0-16.0); LYMPHOCYTES % 11.1 % (20.0-50.0); MEAN CORPUSCULAR HEMOGLOBIN 26.1 pg (28.0-32.0); MEAN CORPUSCULAR HGB CONC 31.1 g/dL (31.0-37.0); MEAN CORPUSCULAR VOLUME 83.9 fL (81.0-99.0); MEAN PLATELET VOLUME 6.7 fl (7.4-10.4); MONOCYTES % 9.1 % (2.0-8.0); NEUTROPHILS % 77.6 % (40.0-76.0); PLATELET 321 x1000/uL (130-400); RED BLOOD CELL COUNT 3.77 mill/uL (4.2-5.4); RED CELL DISTRIBUTION WIDTH 19.3 % (11.6-14.6); WHITE BLOOD COUNT 6.4 x1000/uL (4.5-11.0)
[2022-11-23 18:20] LABS: CHLORIDE 109 mEq/L (98-107); INDEX HEMOLYSI 1 (1-3); INDEX ICTERIC 1 (1-4); INDEX LIPEMIC 1 (1-3); POTASSIUM 4.9 mEq/L (3.5-5.1); SODIUM 137 mEq/L (136-145)
[2022-11-23 18:33] LABS: ALANINE AMINOTRANSFERASE 9 IU/L (13-61); ALBUMIN 2.5 g/dL (3.4-5.0); ASPARTATE AMINOTRANSFERASE 15 IU/L (15-37); BILIRUBIN TOTAL 0.6 mg/dL (0.1-1.0); CALCIUM 8.5 mg/dL (8.5-10.1); CARBON DIOXIDE 20 mEq/L (21-32); CREATININE 1.6 mg/dL (0.6-1.3); GLUCOSE 121 mg/dL (70-105); PROTEIN TOTAL 6.3 g/dL (6.0-8.3); TROPONIN I HIGH SENSITIVITY 27 ng/L (<54); UREA NITROGEN BLOOD 35 mg/dL (7-21)
[2022-11-23] MEDS ORDERED: IPRATROPIUM/ALBUTEROL 0.5-3(2.5)MG/3ML NEB HHN PRN (23:00)
[2022-11-23] MEDS ORDERED: DOCUSATE SODIUM 100MG CAPSULE PO PRN (23:00)
[2022-11-23] MEDS ORDERED: LORAZEPAM 2MG/ML CPJ IV PRN (23:00)
[2022-11-23] MEDS ORDERED: MAGNESIUM/ALUMINUM HYDROXIDE/SIMETHICONE 30ML UDC PO PRN (23:00)
[2022-11-23] MEDS ORDERED: DIPHENHYDRAMINE 50MG/ML VIAL IV PRN (23:00)
[2022-11-23] MEDS ORDERED: ONDANSETRON HCL 4MG/2ML INJ IV PRN (23:00)
[2022-11-23] MEDS ORDERED: ACETAMINOPHEN 325MG TABLET PO PRN ×2 (23:00)
[2022-11-23] MEDS ORDERED: CLONIDINE 0.1MG TABLET PO PRN (23:00)
[2022-11-23 23:58] LABS: PHOSPHORUS 4.3 mg/dL (2.5-4.9)
[2022-11-24 08:00] VITALS: BP 110/57; PULSE 109; RESP 18; RESP 20; TEMP 96.6; TEMP 98.5
[2022-11-24] MEDS ORDERED: DEXTROSE 50% WATER 50ML SYRINGE IV PRN (08:00)
[2022-11-24 08:30] LABS: EOSINOPHILS % 1.2 % (0.0-5.0); HEMATOCRIT. 32.5 % (36.0-48.0); HEMOGLOBIN. 10.2 g/dL (12.0-16.0); LYMPHOCYTES % 11.2 % (20.0-50.0); MEAN CORPUSCULAR HEMOGLOBIN 26.1 pg (28.0-32.0); MEAN CORPUSCULAR HGB CONC 31.4 g/dL (31.0-37.0); MEAN CORPUSCULAR VOLUME 83.1 fL (81.0-99.0); MEAN PLATELET VOLUME 6.7 fl (7.4-10.4); MONOCYTES % 7.4 % (2.0-8.0); NEUTROPHILS % 79.2 % (40.0-76.0); PLATELET 344 x1000/uL (130-400); RED BLOOD CELL COUNT 3.91 mill/uL (4.2-5.4); RED CELL DISTRIBUTION WIDTH 19.1 % (11.6-14.6); WHITE BLOOD COUNT 6.5 x1000/uL (4.5-11.0)
[2022-11-24] MEDS: FAMOTIDINE 20MG/2ML VIAL IV SCH (08:46)
[2022-11-24] MEDS: SPIRONOLACTONE 25MG TABLET PO SCH (08:47)
[2022-11-24] MEDS: ENOXAPARIN 30MG/0.3ML SYR SUBCUT SCH ×2 (08:48→21:13)
[2022-11-24 08:59] LABS: CALCIUM 8.9 mg/dL (8.5-10.1); POTASSIUM 4.6 mEq/L (3.5-5.1)
[2022-11-24] MEDS ORDERED: BUMETANIDE 1MG/4ML VIAL IV SCH (09:00)
[2022-11-24 09:08] LABS: CREATININE 1.6 mg/dL (0.6-1.3); PHOSPHORUS 4.2 mg/dL (2.5-4.9)
[2022-11-24 09:17] VITALS: BP 125/60; PULSE 83; RESP 20; TEMP 97.8
[2022-11-24] MEDS ORDERED: METO25TA6 PO (10:21)
[2022-11-24 11:12] LABS: INR 1.2; PROTHROMBIN TIME 12.6 sec (9.6-11.0)
[2022-11-24] MEDS: BUMETANIDE 1MG/4ML VIAL IV SCH ×2 (11:30→17:21)
[2022-11-24] MEDS ORDERED: SODIUM BICARBONATE 4% (2.4MEQ) 5ML VIAL IV ONE (11:40)
[2022-11-24] MEDS ORDERED: LIDOCAINE HCL 1% 10 MG/ML 10ML VIAL ONE (11:40)
[2022-11-24 12:00] VITALS: BP 114/58; PULSE 114; RESP 21; TEMP 97.8
[2022-11-24] MEDS: INSULIN LISPRO 100 UNITS/ML SUBCUT SCH ×3 (12:04→21:00)
[2022-11-24] MEDS: BLOOD SUGAR DIAGNOSTIC STRIP TEST SCH ×3 (12:04→21:14)
[2022-11-24 16:00] VITALS: BP 108/49; PULSE 108; RESP 18; TEMP 97.8
[2022-11-24] MEDS ORDERED: *PATIENT'S OWN MEDICATION STORAGE XX SCH (16:45)
[2022-11-24 16:51] LABS: PROTEIN BODY FLUID 3.5 gm/dL
[2022-11-24 18:25] LABS: TROPONIN I HIGH SENSITIVITY 31 ng/L (<54)
[2022-11-24 20:00] VITALS: BP 100/49; PULSE 107; RESP 16; TEMP 96.8
[2022-11-24] MEDS ORDERED: ATORVASTATIN CALCIUM 40MG TABLET PO SCH (21:00)
[2022-11-24 21:36] LABS: BODY FLUID MONOCYTES 16 %; BODY FLUID RBC 4210 /cu mm (0-2000); BODY FLUID WBC 40 /cu mm (0-200)
[2022-11-25] VITALS: BP 94/44; PULSE 95; RESP 16; TEMP 96.8
[2022-11-25 04:00] VITALS: BP 96/51; PULSE 101; RESP 16; TEMP 96.9
[2022-11-25] MEDS: BUMETANIDE 1MG/4ML VIAL IV SCH ×2 (06:18→17:15)
[2022-11-25] MEDS: BLOOD SUGAR DIAGNOSTIC STRIP TEST SCH ×3 (06:25→17:59)
[2022-11-25] MEDS: INSULIN LISPRO 100 UNITS/ML SUBCUT SCH ×3 (06:25→18:08)
[2022-11-25 08:00] VITALS: BP 106/46; PULSE 105; RESP 18; TEMP 98.1
[2022-11-25 08:39] LABS: BASOPHILS % 0.6 % (0.0-2.0); EOSINOPHILS % 1.6 % (0.0-5.0); HEMATOCRIT. 31.5 % (36.0-48.0); LYMPHOCYTES % 9.5 % (20.0-50.0); MEAN CORPUSCULAR HEMOGLOBIN 26.5 pg (28.0-32.0); MEAN CORPUSCULAR HGB CONC 31.9 g/dL (31.0-37.0); MEAN PLATELET VOLUME 6.7 fl (7.4-10.4); MONOCYTES % 7.4 % (2.0-8.0); NEUTROPHILS % 80.9 % (40.0-76.0); PLATELET 259 x1000/uL (130-400); RED CELL DISTRIBUTION WIDTH 19.2 % (11.6-14.6); WHITE BLOOD COUNT 6.6 x1000/uL (4.5-11.0)
[2022-11-25 09:06] LABS: CHLORIDE 110 mEq/L (98-107); INDEX HEMOLYSI 1 (1-3); INDEX ICTERIC 1 (1-4); INDEX LIPEMIC 1 (1-3); POTASSIUM 4.9 mEq/L (3.5-5.1); SODIUM 137 mEq/L (136-145)
[2022-11-25] MEDS: FAMOTIDINE 20MG/2ML VIAL IV SCH (09:06)
[2022-11-25] MEDS: SPIRONOLACTONE 25MG TABLET PO SCH (09:07)
[2022-11-25] MEDS: ENOXAPARIN 30MG/0.3ML SYR SUBCUT SCH (09:08)
[2022-11-25 09:15] LABS: ALANINE AMINOTRANSFERASE 8 IU/L (13-61); ASPARTATE AMINOTRANSFERASE 16 IU/L (15-37); BILIRUBIN TOTAL 0.7 mg/dL (0.1-1.0); CALCIUM 8.4 mg/dL (8.5-10.1); CARBON DIOXIDE 22 mEq/L (21-32); CREATININE 1.6 mg/dL (0.6-1.3); GLUCOSE 134 mg/dL (70-105); PHOSPHORUS 4.2 mg/dL (2.5-4.9); UREA NITROGEN BLOOD 38 mg/dL (7-21)
[2022-11-25 12:00] VITALS: BP 92/50; PULSE 102; RESP 18; TEMP 97.8
[2022-11-25 12:42] VITALS: BP 92/50; PULSE 102; TEMP 97.8; O2SAT 99
[2022-11-25 16:00] VITALS: BP 121/48; PULSE 101; RESP 18; TEMP 97.5
== END 2022-11-25 18:20 | disposition home or self-care (01) | DRG 194 ==
LOC: ER 15:54 → 8WST 20:55 → EDBEDREQ 21:06 → EDBEDREQTM 21:06 → ER 22:50
PROVIDERS: ADMIT Hospitalist; ATTEND Hospitalist
PROC: 0W9G3ZZ Drainage of Peritoneal Cavity, Percutaneous Approach (ICD-10-PCS; principal; 2022-11-24)
DX: I13.0 Hypertensive heart and chronic kidney disease with heart failure and stage 1 through stage 4 chronic kidney disease, or unspecified chronic kidney disease (principal); N17.9 Acute kidney failure, unspecified; E11.649 Type 2 diabetes mellitus with hypoglycemia without coma; R18.8 Other ascites; E44.0 Moderate protein-calorie malnutrition; E88.09 Other disorders of plasma-protein metabolism, not elsewhere classified; D50.9 Iron deficiency anemia, unspecified; I48.91 Unspecified atrial fibrillation; I50.23 Acute on chronic systolic (congestive) heart failure; I25.10 Atherosclerotic heart disease of native coronary artery without angina pectoris; I37.1 Nonrheumatic pulmonary valve insufficiency; K76.1 Chronic passive congestion of liver; E11.22 Type 2 diabetes mellitus with diabetic chronic kidney disease; N18.9 Chronic kidney disease, unspecified; E03.8 Other specified hypothyroidism; E78.5 Hyperlipidemia, unspecified; Z88.0 Allergy status to penicillin; Z68.1 Body mass index [BMI] 19.9 or less, adult; Z79.4 Long term (current) use of insulin
CPT/HCPCS: 36415; 49083; 71045; 76604; 76770; 80048; 80053; 82040; 82962; 83036; 83615; 83735; 83880; 84100; 84484; 85025; 87426; 93005; 93880; 99285; J1650; J1815; J1940; J3490